=== PATIENT | male | born 1995 | race Caucasian/White ===

== ENCOUNTER 2022-11-16 18:16 | Emergency (ER) | payer BC, OTHER ==
--- NOTE | 2022-11-16 21:50 | ERPHSYRPT ---
- History of Present Illness Time Seen by Provider: 11/16/22 19:45 Source: patient Exam Limitations: no limitations Patient Subjective Stated Complaint: " I was a little intoxicated on [address] and fainted and fell and hit the deck with the back of my head. I think I have a concussion". Triage Nursing Assessment: Pt presents to ER with concerns about possible concussion. was drinking on [address] and experienced a syncopal episode while standing causing him to fall back on a deck striking his head. Pt complains of dizziness and nausea. was at work today and felt "foggy". Pt skin is pink, warm, and dry. No obvious trauma noted. Pupils PERRL. Respirations easy. Pt is alert and oriented x 3. Rates pain mild headache 4/10 scale. Physician History: Patient is a 27-year-old white male who had been drinking on [address] when he either passed out or fell on to hit his head on the wall and the floor. He has had a head ache since that time its mostly posterior he has had some photophobia he has had some dizziness he has had some nausea but no vomiting Occurred: last week Severity: moderate Head Injury Location: occipital Method of Injury: fell Loss of Consciousness: prolonged (minutes) Associated Symptoms: nausea, headaches Allergies/Adverse Reactions: Sulfa (Sulfonamide Antibiotics) Allergy (Intermediate, Verified 11/16/22 19:41) Headache Home Medications: No Reportable Medications [No Reported Medications] 11/16/22 [History] Hx Tetanus, Diphtheria Vaccination/Date Given: Yes Hx Influenza Vaccination/Date Given: Yes Hx Pneumococcal Vaccination/Date Given: No Immunizations Up to Date: Yes Travel Risk - International Travel Have you traveled outside of the country in past 3 weeks: No - Coronavirus Screening Are you exhibiting any of the following symptoms?: No Close contact with a COVID-19 positive Pt in past 14-21 Days: No - Vaccine Status Have you recieved a Covid-19 vaccination: Yes Pl[employer]: [employer] - Vaccination Dates Date of 2cond Vaccination (if applicable): 2020 - Review of Systems Constitutional: No Fever, No Chills Eyes: No Symptoms Ears, Nose, & Throat: No Symptoms Respiratory: No Cough, No Dyspnea Cardiac: No Chest Pain, No Edema, No Syncope Abdominal/Gastrointestinal: No Abdominal Pain, No Nausea, No Vomiting, No Diarrhea Genitourinary Symptoms: No Dysuria Musculoskeletal: No Back Pain, No Neck Pain Skin: No Rash Neurological: Dizziness, Headache, No Focal Weakness, No Sensory Changes Psychological: No Symptoms Endocrine: No Symptoms All Other Systems: Reviewed and Negative - Past Medical History Pertinent Past Medical History: Yes Neurological History: No Pertinent History ENT History: No Pertinent History Cardiac History: No Pertinent History Respiratory History: No Pertinent History Endocrine Medical History: No Pertinent History Musculoskeletal History: No Pertinent History GI Medical History: No Pertinent History History: No Pertinent History Psycho-Social History: No Pertinent History Male Reproductive Disorders: No Pertinent History Other Medical History: leti mountain spotted fever - Past Surgical History Past Surgical History: Yes Gastrointestinal: Appendectomy - Social History Smoking Status: Never smoker Exposure to second hand smoke: No Drug Use: none Patient Lives Alone: No - Nursing Vital Signs Nursing Vital Signs: Initial Vital Signs Temperature 97.4 F 11/16/22 19:34 Pulse Rate 73 11/16/22 19:34 Respiratory Rate 18 11/16/22 19:34 Blood Pressure 145/89 11/16/22 19:34 O2 Sat by Pulse Oximetry 98 11/16/22 19:34 Pain Scale Pain Intensity 4 - Josiah Coma Score Best Eye Response (Josiah): (4) open spontaneously Best Verbal Response ([place]): (5) oriented Best Motor Response (Josiah): (6) obeys commands Josiah Total: 15 - Physical Exam SpO2: 99 - Course Nursing assessment & vital signs reviewed: Yes - CT Exams Head CT Interpretation: Negative Ordered Tests: Active Orders 24 hr Category Date Time Status HEAD WITHOUT CONTRAST [CT] Stat Exams 11/16/22 20:06 Taken - Progress Progress: unchanged - Departure Departure Disposition: Home Clinical Impression: Postconcussion syndrome Condition: Stable Critical Care Time: No Referrals: DOCTOR,NO FAMILY [Primary Care Provider] - Follow up/PCP as directed Instructions: Closed Head Injury (DC)
[2022-11-16 22:00] VITALS: BP 124/69; PULSE 72; O2SAT 98
--- NOTE | 2022-11-17 08:35 | XRAY ---
Indication: Headache, dizziness, and nausea. Status post posterior head injury following fall 4 days ago. Multiple contiguous axial images obtained through the head without contrast. Comparison: None Normal appearing brain parenchyma, ventricles, and bony calvarium. Visualized paranasal sinuses and mastoid air cells are clear. Impression: Normal CT head without contrast exam.
== END 2022-11-16 22:00 | disposition home or self-care (01) ==
LOC: ED 18:16
DX: R42 Dizziness and giddiness (principal); G44.309 Post-traumatic headache, unspecified, not intractable; F07.81 Postconcussional syndrome; R11.0 Nausea
CPT/HCPCS: 70450; 99283

== ENCOUNTER 2024-07-27 17:31 | Emergency (ER) | payer OTHER ==
[2024-07-27] MEDS ORDERED: XYLOCAINE 1% HCL 20 ML MDV IJ ONE (17:32)
[2024-07-27 18:44] VITALS: PULSE 67; RESP 18; TEMP 98.4
--- NOTE | 2024-07-27 18:55 | ERPHSYRPT ---
- History of Present Illness Source: patient, family Exam Limitations: no limitations Patient Subjective Stated Complaint: pt reports that approx 1725 he had a sudden sharp pain in his testicle and passed out. pt reports he no longer has pain or feels any symptoms. Triage Nursing Assessment: pt is aox3, pupils perrl, pt speech is clear, normal, afebrile, resps easy and non labored, cap refill < 3 seconds, pt skin pink warm dry. Timing/Duration: today Activites at Onset: none Quality: sharpness, stabbing Onset Location: right testicle Pain Radiation: none Severity of Pain-Max: moderate Severity of Pain-Current: none Associated Symptoms: denies symptoms Prior abdominal problems: none Sexual intercourse history: non-contributory Hx Tetanus, Diphtheria Vaccination/Date Given: Yes Hx Influenza Vaccination/Date Given: Yes Hx Pneumococcal Vaccination/Date Given: No Immunizations Up to Date: Yes <KELLY DESAI - Last Filed: 07/27/24 18:55> <JEANNETTE FLORIAN - Last Filed: 07/27/24 20:19> - History of Present Illness Time Seen by Provider: 07/27/24 18:51 Physician History: pt reports that approx 1725 he had a sudden sharp pain in his testicle and passed out. pt reports he no longer has pain or feels any symptoms. Patient is a 29-year-old male otherwise healthy was sitting in chair and suddenly developed right side testicular pain and then he passed out for few seconds. He denies any urine trouble fever chills nausea or vomiting. He never have this type of pain before. (KELLY DESAI) Allergies/Adverse Reactions: Sulfa (Sulfonamide Antibiotics) Allergy (Intermediate, Verified 07/27/24 18:44) Headache Home Medications: No Reportable Medications [No Reported Medications] 11/16/22 [History] Travel Risk - International Travel Have you traveled outside of the country in past 3 weeks: No - Emerging Infectious Disease Are you exhibiting symptoms associated with any current EIDs: No <KELLY DESAI - Last Filed: 07/27/24 18:55> - Past Medical History Pertinent Past Medical History: Yes Neurological History: No Pertinent History ENT History: No Pertinent History Cardiac History: No Pertinent History Respiratory History: No Pertinent History Endocrine Medical History: No Pertinent History Musculoskeletal History: No Pertinent History GI Medical History: No Pertinent History History: No Pertinent History Psycho-Social History: No Pertinent History Male Reproductive Disorders: No Pertinent History Other Medical History: leti mountain spotted fever - Past Surgical History Past Surgical History: Yes Gastrointestinal: Appendectomy - Social History Smoking Status: Current every day smoker Exposure to second hand smoke: No Drug Use: none Patient Lives Alone: No - Social Determinants of Health Will the patient participate in the screening: Yes Do you worry about a steady place to live?: No Do you have any problems with any of the following?: No known problems In the past 12 months,have you had to go without utilities?: No Transportation Issues: No Has anyone in your support network made you feel unsafe?: No Have you or anyone in your house had to go without enough: No <KELLY DESAI - Last Filed: 07/27/24 18:55> - Review of Systems Constitutional: No Fever, No Chills Eyes: No Symptoms Ears, Nose, & Throat: No Symptoms Respiratory: No Cough, No Dyspnea Cardiac: No Chest Pain, No Edema, No Syncope Abdominal/Gastrointestinal: No Abdominal Pain, No Nausea, No Vomiting, No Diarrhea Genitourinary Symptoms: Testicle Pain (right), No Dysuria Musculoskeletal: No Back Pain, No Neck Pain Skin: No Rash Neurological: No Dizziness, No Focal Weakness, No Sensory Changes Psychological: No Symptoms Endocrine: No Symptoms All Other Systems: Reviewed and Negative <NAT DESAIYESH - Last Filed: 07/27/24 18:55> - Physical Exam General Appearance: no apparent distress, alert Eye Exam: PERRL/EOMI Ears, Nose, Throat Exam: pharynx normal, moist mucous membranes Neck Exam: normal inspection, supple Respiratory Exam: normal breath sounds, lungs clear Cardiovascular Exam: regular rate/rhythm, No edema Gastrointestinal/Abdomen Exam: soft, No tenderness Male Genital Exam: normal genitalia, no hernia, No epididymal tenderness, No erythema, No hydrocele, No hernia mass, No inguinal tenderness, No scrotum tenderness (R), No scrotum tenderness (L), No testicular tenderness (R), No testicular tenderness (L), No urethral discharge, No scrotal swellling Back Exam: normal inspection, No CVA tenderness Extremity Exam: normal inspection, normal range of motion, No pedal edema Neurologic Exam: alert, oriented x 3, cooperative, sensation nml, No motor deficits Skin Exam: normal color, warm, dry, No rash SpO2: 98 <LLOYD - Last Filed: 07/27/24 18:55> - Nursing Vital Signs Nursing Vital Signs: Initial Vital Signs Temperature 98.4 F 07/27/24 18:36 Pulse Rate 67 07/27/24 18:36 Respiratory Rate 18 07/27/24 18:36 Blood Pressure 116/69 07/27/24 18:36 O2 Sat by Pulse Oximetry 98 07/27/24 18:36 Pain Scale Pain Intensity 0 - Course Nursing assessment & vital signs reviewed: Yes - Radiology Ultrasound Exam Scrotal Ultrasound: tele radiology report <LLOYD - Last Filed: 07/27/24 18:55> Ordered Tests: Active Orders 24 hr Category Date Time Status TESTICLE [US] Stat Exams 07/27/24 18:50 Taken CBC W DIFF Stat Lab 07/27/24 19:00 Completed CMP Stat Lab 07/27/24 19:00 Completed UA W/RFX UR CULTURE Stat Lab 07/27/24 19:19 Completed Urine Triage Profile Stat Lab 07/27/24 19:19 Completed Lab/Rad Data: Laboratory Result Diagrams 07/27/24 19:00 07/27/24 19:00 Laboratory Results 07/27/24 07/27/24 07/27/24 Range/Units 19:19 19:19 19:00 WBC (4.23-9.07) x10^3/uL RBC (4.63-6.08) x10^6/uL Hgb (13.7-17.5) g/dL Hct (40.1-51.0) % MCV (79.0-92.2) fL MCH (25.7-32.2) pg MCHC (32.3-36.5) g/dL RDW (11.6-14.4) % Plt Count (163-337) x10^3/uL MPV (9.4-12.4) fL Gran % (34.0-67.9) % Immature Gran % (Auto) (0.001-0.429) % Nucleat RBC Rel Count (0.00-0.2) % Eos # (Auto) (0.04-0.54) x10^3/uL Immature Gran # (Auto) (0.001-0.031) x10^3u/L Absolute Lymphs (auto) (1.32-3.57) x10^3/uL Absolute Monos (auto) (0.30-0.82) x10^3/uL Absolute Nucleated RBC (0.00-0.012) x10^3u/L Lymphocytes % (21.8-53.1) % Monocytes % (5.3-12.2) % Eosinophils % (0.8-7.0) % Basophils % (0.2-1.2) % Absolute Granulocytes (1.78-5.38) x10^3/uL Basophils # (0.01-0.08) x10^3/uL Sodium 139 (135-145) mmol/L Potassium 4.1 (3.5-5.1) mmol/L Chloride 103 (98-107) mmol/L Carbon Dioxide 27 (22-30) mmol/L Anion Gap 12.6 (5-15) MEQ/L BUN 15 (9-20) mg/dL Creatinine 1.08 (0.66-1.25) mg/dL Estimated GFR 96.5 ML/MIN Glucose 82 (74-106) mg/dL Calcium 9.5 (8.4-10.2) mg/dL Total Bilirubin 0.40 (0.2-1.3) mg/dL AST 28 (17-59) U/L ALT 29 (0-50) U/L Alkaline Phosphatase 52 (38-126) U/L Serum Total Protein 7.3 (6.3-8.2) g/dL Albumin 4.6 (3.5-5.0) g/dL Urine Color Yellow (Yellow) Urine Appearance Clear (Clear) Urine pH 6.0 (4.6-8.0) Ur Specific [place] <=1.005 (1.005-1.030) Urine Protein Negative (Negative) Urine Glucose (UA) Negative (Negative) mg/dL Urine Ketones Negative (Negative) Urine Blood Negative (Negative) Urine Nitrite Negative (Negative) Urine Bilirubin Negative (Negative) Urine Urobilinogen 0.2 (0.2) mg/dL Ur Leukocyte Esterase Negative (Negative) U Hyaline Cast (Auto) NONE SEEN (0-2) /LPF Urine Microscopic RBC 0-2 (0-5) /HPF Urine Microscopic WBC 0-2 (0-5) /HPF Ur Epithelial Cells None Seen (None Seen) /HPF Urine Bacteria None Seen (None Seen) /HPF Urine Culture Reflexed NO (NO) Urine Opiates Level NEGATIVE (NEGATIVE) Ur Methadone NEGATIVE (NEGATIVE) Urine Barbiturates NEGATIVE (NEGATIVE) Ur Phencyclidine (PCP) NEGATIVE (NEGATIVE) Urine Amphetamine NEGATIVE (NEGATIVE) U Benzodiazepine Level NEGATIVE (NEGATIVE) Urine Cocaine NEGATIVE (NEGATIVE) Urine Marijuana (THC) POSITIVE A (NEGATIVE) 07/27/24 Range/Units 19:00 WBC 7.7 (4.23-9.07) x10^3/uL RBC 5.27 (4.63-6.08) x10^6/uL Hgb 14.9 (13.7-17.5) g/dL Hct 43.4 (40.1-51.0) % MCV 82.4 (79.0-92.2) fL MCH 28.3 (25.7-32.2) pg MCHC 34.3 (32.3-36.5) g/dL RDW 12.2 (11.6-14.4) % Plt Count 217 (163-337) x10^3/uL MPV 9.7 (9.4-12.4) fL Gran % 69.6 H (34.0-67.9) % Immature Gran % (Auto) 0.5 H (0.001-0.429) % Nucleat RBC Rel Count 0.0 (0.00-0.2) % Eos # (Auto) 0.05 (0.04-0.54) x10^3/uL Immature Gran # (Auto) 0.04 H (0.001-0.031) x10^3u/L Absolute Lymphs (auto) 1.50 (1.32-3.57) x10^3/uL Absolute Monos (auto) 0.69 (0.30-0.82) x10^3/uL Absolute Nucleated RBC 0.00 (0.00-0.012) x10^3u/L Lymphocytes % 19.5 L (21.8-53.1) % Monocytes % 9.0 (5.3-12.2) % Eosinophils % 0.7 L (0.8-7.0) % Basophils % 0.7 (0.2-1.2) % Absolute Granulocytes 5.35 (1.78-5.38) x10^3/uL Basophils # 0.05 (0.01-0.08) x10^3/uL Sodium (135-145) mmol/L Potassium (3.5-5.1) mmol/L Chloride (98-107) mmol/L Carbon Dioxide (22-30) mmol/L Anion Gap (5-15) MEQ/L BUN (9-20) mg/dL Creatinine (0.66-1.25) mg/dL Estimated GFR ML/MIN Glucose (74-106) mg/dL Calcium (8.4-10.2) mg/dL Total Bilirubin (0.2-1.3) mg/dL AST (17-59) U/L ALT (0-50) U/L Alkaline Phosphatase (38-126) U/L Serum Total Protein (6.3-8.2) g/dL Albumin (3.5-5.0) g/dL Urine Color (Yellow) Urine Appearance (Clear) Urine pH (4.6-8.0) Ur Specific [place] (1.005-1.030) Urine Protein (Negative) Urine Glucose (UA) (Negative) mg/dL Urine Ketones (Negative) Urine Blood (Negative) Urine Nitrite (Negative) Urine Bilirubin (Negative) Urine Urobilinogen (0.2) mg/dL Ur Leukocyte Esterase (Negative) U Hyaline Cast (Auto) (0-2) /LPF Urine Microscopic RBC (0-5) /HPF Urine Microscopic WBC (0-5) /HPF Ur Epithelial Cells (None Seen) /HPF Urine Bacteria (None Seen) /HPF Urine Culture Reflexed (NO) Urine Opiates Level (NEGATIVE) Ur Methadone (NEGATIVE) Urine Barbiturates (NEGATIVE) Ur Phencyclidine (PCP) (NEGATIVE) Urine Amphetamine (NEGATIVE) U Benzodiazepine Level (NEGATIVE) Urine Cocaine (NEGATIVE) Urine Marijuana (THC) (NEGATIVE) - Progress Progress: improved Counseled pt/family regarding: lab results, diagnosis, need for follow-up, rad results <JEANNETTE FLORIAN - Last Filed: 07/27/24 20:19> - Progress Progress Note: Laboratory evaluation within normal limits. Ultrasound showed hyperemic blood flow to the testicle with edema concerning for possible torsion during his pain episode, but no signs of torsion at this time. I do recommend follow-up with urologist for further evaluation to discuss potential surgical interventions. 07/27/24 20:17 (JEANNETTE FLORIAN) Medical Desision Making - Diagnostic Testing Diagnostic test were ordered, analyzed, and reviewed by me: Yes Radiological Interpretation: Interpreted by me, Reviewed by me, Teleradiologist Report - Risk of complications Low Risk: Low risk of morbidity from additional dx testing or treatment <JEANNETTE FLORIAN - Last Filed: 07/27/24 20:19> <KELLY DESAI - Last Filed: 07/27/24 18:55> - Departure Departure Disposition: Home Critical Care Time: No <JEANNETTE FLORIAN - Last Filed: 07/27/24 20:19> - Departure Clinical Impression: Testicular pain Condition: Good Referrals: DOCTOR,NO FAMILY [Primary Care Provider] - Follow up/PCP as directed FARSHAD SNOWDEN DO [NON-STAFF PHY W/O PRIVILEGES] - Follow up with PCP 7 days Instructions: Testicular Torsion, Adult
[2024-07-27 19:04] LABS: Absolute Neutrophil Ct (ANC) 5.35 x10^3/uL (1.78-5.38); BASOPHIL % 0.7 % (0.2-1.2); Basophil (Absolute #) 0.05 x10^3/uL (0.01-0.08); Eosinophil % 0.7 % (0.8-7.0); Eosinophil (Absolute #) 0.05 x10^3/uL (0.04-0.54); Hematocrit 43.4 % (40.1-51.0); Hemoglobin 14.9 g/dL (13.7-17.5); IMMATURE GRAN # 0.04 x10^3u/L (0.001-0.031); IMMATURE GRAN % 0.5 % (0.001-0.429); Lymphocytes % 19.5 % (21.8-53.1); Mean Cell Volume 82.4 fL (79.0-92.2); Mean Corpuscular Hemoglobin 28.3 pg (25.7-32.2); Mean Corpuscular Hgb Concent. 34.3 g/dL (32.3-36.5); Mean Platelet Volume 9.7 fL (9.4-12.4); Monocyte (Absolute #) 0.69 x10^3/uL (0.30-0.82); Neutrophil % 69.6 % (34.0-67.9); Platelet Count 217 x10^3/uL (163-337); Red Blood Count 5.27 x10^6/uL (4.63-6.08); Red Cell Distribution Width 12.2 % (11.6-14.4); White Blood Count 7.7 x10^3/uL (4.23-9.07)
[2024-07-27 19:16] LABS: ALBUMIN 4.6 g/dL (3.5-5.0); ANION GAP 12.6 MEQ/L (5-15); BILIRUBIN,TOTAL 0.4 mg/dL (0.2-1.3); Calcium 9.5 mg/dL (8.4-10.2); Creatinine 1 1.08 mg/dL (0.66-1.25); EST GLOMERULAR FILTRATION RATE 96.5 ML/MIN; Potassium 4.1 mmol/L (3.5-5.1); Total Protein 7.3 g/dL (6.3-8.2)
[2024-07-27 19:30] LABS: Appearance Clear (Clear); Bacteria None Seen /HPF (None Seen); Bilirubin Negative (Negative); Blood Negative (Negative); Epithelial Cells None Seen /HPF (None Seen); Glucose, Urine Negative (Negative); Hyaline Casts NONE SEEN /LPF (0-2); Ketones Negative (Negative); Leukocyte Esterase Negative (Negative); Nitrite Negative (Negative); Protein,Urine Dip Negative (Negative); RBC 0-2 /HPF (0-5); Specific Gravity <=1.005 (1.005-1.030); Urobilinogen 0.2 mg/dL (0.2); WBC 0-2 /HPF (0-5)
[2024-07-27 19:31] LABS: ADD URINE CULTURE? NO (NO)
[2024-07-27 19:41] LABS: Amphetamine,Urine NEGATIVE (NEGATIVE); Barbiturate,Urine NEGATIVE (NEGATIVE); Benzodiazepine,Urine NEGATIVE (NEGATIVE); Cocaine,Urine NEGATIVE (NEGATIVE); Methadone,Urine NEGATIVE (NEGATIVE); Opiate,Urine NEGATIVE (NEGATIVE); PCP,Urine NEGATIVE (NEGATIVE); THC,Urine POSITIVE (NEGATIVE)
--- NOTE | 2024-07-27 20:37 | XRAY ---
Indication: Right testicular pain. Two-dimensional testicular sonogram performed. Comparison: None Both testicles are homogeneous in echogenicity with normal color perfusion. Right testicle measures 4.0 x 2.3 x 4.8 cm, demonstrating mild edema and slight increased color flow, orchitis in the right clinical setting. Left measures 4.2 x 2.2 x 3.6 cm and demonstrates normal color perfusion. Left and right epididymis sonographically unremarkable. Tiny nonspecific bilateral hydroceles. No suspicious extratesticular mass. Impression: 1. Minimal right testicular edema with increased color Doppler flow. Rule out orchitis. 2. Negative left testicle sonogram. Comment: Preliminary report was given.
[2024-07-27 20:39] VITALS: BP 115/80; O2SAT 97
[2024-07-27] MEDS ORDERED: Zithromax 250 MG TABLET ONE (20:50)
[2024-07-27] MEDS ORDERED: Rocephin 1000 MG INJ ONE (20:50)
[2024-07-27] MEDS: Zithromax 250 MG TABLET PO ONE (20:54)
[2024-07-27] MEDS: Rocephin 1000 MG INJ IM ONE (20:54)
== END 2024-07-27 21:12 | disposition home or self-care (01) ==
LOC: ED 17:31
DX: N50.811 Right testicular pain (principal); Z72.0 Tobacco use
CPT/HCPCS: 36415; 76870; 80053; 80307; 81001; 85025; 96372; 99283; J0696; A9270-GY